=== PATIENT | female | born 1955 | race Caucasian/White ===

== ENCOUNTER 2018-12-02 07:20 | Day surgery (SDC) | payer MEDICAID ==
[~2018-12-02] VITALS: Ht 152.4 cm; Wt 63.0 kg
[~2018-12-02 07:20] MED LIST: SODIUM CHLORIDE 0.9% 1,000 ML IV ONE
[2018-12-02] MEDS ORDERED: PROPOFOL 1% 20 ML VIAL IVP ONE (07:21)
[2018-12-02] MEDS ORDERED: SPIR25 PO (07:42)
[2018-12-02] MEDS ORDERED: ACET-2744 PO (07:42)
[2018-12-02] MEDS ORDERED: FOLI1 PO (07:42)
[2018-12-02] MEDS ORDERED: GABA-531 PO (07:42)
[2018-12-02] MEDS ORDERED: FURO40I IV (07:42)
[2018-12-02] MEDS ORDERED: THIA100T67 PO (07:42)
== END 2018-12-02 10:45 | disposition home or self-care (01) ==
LOC: SURGERY 07:20
PROVIDERS: ATTEND Internal Medicine Gastroenterology
DX: K29.50 Unspecified chronic gastritis without bleeding (principal); I85.00 Esophageal varices without bleeding; K76.6 Portal hypertension; K31.89 Other diseases of stomach and duodenum; K74.60 Unspecified cirrhosis of liver; I10 Essential (primary) hypertension; M19.90 Unspecified osteoarthritis, unspecified site; K21.9 Gastro-esophageal reflux disease without esophagitis; Z86.73 Personal history of transient ischemic attack (TIA), and cerebral infarction without residual deficits; Z85.3 Personal history of malignant neoplasm of breast; Z86.19 Personal history of other infectious and parasitic diseases; Z72.89 Other problems related to lifestyle; Z79.899 Other long term (current) drug therapy; Z98.890 Other specified postprocedural states
CPT/HCPCS: 43239; 88305; 88312; 88313; C1769; J2704; J7030